=== PATIENT | male | born 1960 | race Caucasian/White ===

== ENCOUNTER 2020-12-17 12:18 | Inpatient (IN) ==
[2020-12-17] MEDS ORDERED: dilTIAZem HCl 5 MG/ML 5 ML VIAL IV STA ×2 (13:06→14:21)
--- NOTE | 2020-12-17 13:09 | Emergency Department Note ---
History of Present Illness General Chief complaint: Chest Pain Stated complaint: SOB, CHEST PAIN Time Seen by Provider: 12/17/20 12:59 Source: patient History of Present Illness Provider complaint: Chest pain Onset (ago): week(s) Location: chest Radiation: non-radiation Severity: moderate Pain Consistency: + intermittent and + now resolved Maximum Pain Intensity: 7 Quality: + other (Something sitting on his chest) Relieved By: + none Exacerbated By: + other (Exertion) Associated symptoms: + other (Bilateral foot swelling for 2 days); no cough, no fever/chills, no headaches, no nausea/vomiting or no shortness of breath This is a 60-year-old male who presents with intermittent chest pain for the past week. He states that it feels like something is sitting in the middle of his chest. There is no radiation of pain. It is associated with shortness of breath and he gets especially short of breath with exertion. His chest pain gets worse with exertion as well. He states it is currently gone and he last had at this morning. He does have a history of Covid 5 months ago and then subsequently received the vaccination series. He denies any recent immobilization but has noticed that his feet are swollen. He denies any leg pain or history of PE or DVT. He has never had a dysrhythmia in the past. He denies any cardiac history. He states he has a history of hypertension but is not on medications for it. He denies any recent alcohol use. He has had no fever, cough or cold symptoms, vomiting, diarrhea or urinary symptoms. He does state that he has had some cramping epigastric pain on occasion. Past Med/Surg History Medical History (Updated 12/17/20 @ 14:26 by Johnson Rizvi MD) Hypertension Social History Smoking Status: Never smoker Preferred Language: Romansh Feels Safe at Home: Yes Review of Systems See HPI for pertinent positives & negatives. and A total of 10 systems reviewed and were otherwise negative Physical Exam Vital Signs Vital Signs - 24 hr 12/17/20 12:19 12/17/20 13:14 Temperature 36.7 C Temperature Source Temporal Artery Scan Pulse Rate 118 H Pulse Rate [Right Finger] 128 H Pulse Rhythm Irregular Pulse Rhythm [Right Finger] Irregular Pulse Strength Normal Pulse Strength [Right Finger] Normal Respiratory Rate 20 Respiratory Effort / Characteristics Non-Labored Respiratory Depth Normal Respiratory Pattern Regular Blood Pressure 196/129 H Blood Pressure [Right Arm] 196/129 H Blood Pressure Mean 151 Blood Pressure Mean [Right Arm] 151 Blood Pressure Position Sitting Blood Pressure Position [Right Arm] Sitting Pulse Oximetry 95 93 Oxygen Delivery Method Room Air Room Air Sepsis Recent Fever Within 48 Hours No Sepsis New/Unexplained Change in Mental Status N/A Sepsis Action Taken by Nursing No Action Required Constitutional: Vital signs reviewed. Eyes: Pupils are equal round reactive to light. Conjunctiva are noninjected. ENT: Pharynx is clear without erythema or exudate. Mucous membranes are moist. Neck supple without meningeal signs. Respiratory: Clear to auscultation bilaterally. Breath sounds are equal bilaterally. Cardiovascular: Irregularly irregular rhythm. Tachycardic heart rate 130. GI: Soft, nondistended and nontender. Bowel sounds are present. Musculoskeletal: No peripheral edema. No lower extremity tenderness. Integumentary: No cyanosis. or jaundice. Neurological: The patient is awake and alert. No focal deficits. Psychiatric: Normal affect. Not anxious appearing. Course Administered Medications Discontinued Medications Diltiazem HCl (Diltiazem Hcl 5 Mg/Ml 5 Ml Vial) 10 mg IV NOW STA Stop: 12/17/20 13:07 Last Admin: 12/17/20 13:23 Dose: 10 mg Documented by: [id number] Cosigned by: [id number] Ioversol (Optiray 320 125ml) 119 ml IV ONCE ONE Stop: 12/17/20 13:41 Last Admin: 12/17/20 13:41 Dose: 119 ml Documented by: [id number] Critical Care Time Critical Care Time: Yes Total Critical Care Time: 35 I have personally spent approximately 35 minutes of critical care time in the direct management of this patient. This includes bedside care, interpretation of diagnostic studies, and testing, discussion with consultants, patient, and family members, and other required patient management activities. These minutes are in excess of all separately billable procedures. Medical Decision Making Differential Diagnosis Pulmonary embolism, unstable angina, SC, A. fib with RVR, electrolyte abnormality Medical Records Attestation: I reviewed the patient's medical records. I did perform a limited focused review of portions of the patient's old chart on the electronic medical record. The patient has had no prior visits to this hospital. Home Medications Current Medication List: was personally reviewed by me Laboratory Data Attestation: I reviewed the patient's lab results. Result diagrams: 12/17/20 12:59 12/17/20 12:59 Lab Results 12/17/20 12/17/20 12/17/20 Range/Units 12:59 12:59 12:59 WBC 8.76 (4.8-10.8) K/uL RBC 5.00 (4.7-6.1) M/uL Hgb 14.6 (14.0-18.0) g/dL POC Hgb (14.0-18.0) g/dl Hct 42.9 (42-52) % POC Hct (42-52) % MCV 85.8 (80-100) fL MCH 29.2 (25-34) pg MCHC 34.0 (32-36) g/dL RDW Std Deviation 42.3 (36.4-46.3) fL RDW Coeff of Bo 13.7 (11.5-14.5) % Plt Count 193 (130-400) K/uL MPV 10.0 (7.4-10.4) fL Immature Gran % (Auto) 0.2 % Neut % (Auto) 68.5 % Lymph % (Auto) 24.1 % [place]ipley % (Auto) 5.5 % Eos % (Auto) 1.4 % Baso % (Auto) 0.3 % Neut # (Auto) 6.00 (1.4-6.5) K/uL Lymph # (Auto) 2.11 (1.2-3.4) K/uL [place]y # (Auto) 0.48 (0.11-0.59) K/uL Eos # (Auto) 0.12 (0-0.5) K/uL Baso # (Auto) 0.03 (0-0.2) K/uL Immature Gran # (Auto) 0.02 (0.00-0.02) K/uL APTT 25.3 (21.0-31.0) Seconds PTT Ratio 1.0 POC Sodium (135-144) mmol/L Sodium (136-145) mmol/L POC Potassium (3.3-5.0) mmol/L Potassium (3.5-5.1) mmol/L POC Chloride (101-112) mmol/L Chloride (98-107) mmol/L Carbon Dioxide (21-32) mmol/L POC Total CO2 (24-31) mmol/L Anion Gap (3-11) POC Anion Gap (16-25) mmol/L POC BUN (7-18) mg/dl BUN (7-18) mg/dl Creatinine (0.6-1.4) mg/dl POC Creatinine (0.6-1.3) mg/dl Est Cr Clr Drug Dosing ml/min Est GFR ( Amer) ml/min Est GFR (Non-Af Amer) ml/min BUN/Creatinine Ratio (10-20) Glucose (70-99) mg/dl POC Glucose (other) (70-99) mg/dl Calcium (8.5-10.1) mg/dl POC Ioniz Calcium Shira (1.12-1.32) mmol/l Magnesium (1.8-2.4) mg/dl Total Bilirubin (0.2-1) mg/dl AST (15-37) U/L ALT (12-78) U/L Alkaline Phosphatase (45-117) U/L Troponin I Cancelled Total Protein (6.4-8.2) gm/dl Albumin (3.4-5.0) gm/dl Globulin (2.5-4.0) gm/dl Albumin/Globulin Ratio (0.9-2) Lipase (73-393) U/L COVID-19 Eval Order 12/17/20 12/17/20 12/17/20 Range/Units 12:59 13:11 14:45 WBC (4.8-10.8) K/uL RBC (4.7-6.1) M/uL Hgb (14.0-18.0) g/dL POC Hgb 13.9 L (14.0-18.0) g/dl Hct (42-52) % POC Hct 41 L (42-52) % MCV (80-100) fL MCH (25-34) pg MCHC (32-36) g/dL RDW Std Deviation (36.4-46.3) fL RDW Coeff of Bo (11.5-14.5) % Plt Count (130-400) K/uL MPV (7.4-10.4) fL Immature Gran % (Auto) % Neut % (Auto) % Lymph % (Auto) % Ripley % (Auto) % Eos % (Auto) % Baso % (Auto) % Neut # (Auto) (1.4-6.5) K/uL Lymph # (Auto) (1.2-3.4) K/uL [place]y # (Auto) (0.11-0.59) K/uL Eos # (Auto) (0-0.5) K/uL Baso # (Auto) (0-0.2) K/uL Immature Gran # (Auto) (0.00-0.02) K/uL APTT (21.0-31.0) Seconds PTT Ratio POC Sodium 143 (135-144) mmol/L Sodium 141 (136-145) mmol/L POC Potassium 3.9 (3.3-5.0) mmol/L Potassium 4.3 (3.5-5.1) mmol/L POC Chloride 103 (101-112) mmol/L Chloride 109 H (98-107) mmol/L Carbon Dioxide 27 (21-32) mmol/L POC Total CO2 24 (24-31) mmol/L Anion Gap 5.0 (3-11) POC Anion Gap 20.0 (16-25) mmol/L POC BUN 18 (7-18) mg/dl BUN 17 (7-18) mg/dl Creatinine 0.90 (0.6-1.4) mg/dl POC Creatinine 0.9 (0.6-1.3) mg/dl Est Cr Clr Drug Dosing 119.9 ml/min Est GFR ( Amer) 105.7 ml/min Est GFR (Non-Af Amer) 91.2 ml/min BUN/Creatinine Ratio 19.3 (10-20) Glucose 153 H (70-99) mg/dl POC Glucose (other) 152 H (70-99) mg/dl Calcium 9.1 (8.5-10.1) mg/dl POC Ioniz Calcium Shira 1.17 (1.12-1.32) mmol/l Magnesium 2.3 (1.8-2.4) mg/dl Total Bilirubin 1.1 H (0.2-1) mg/dl AST 22 (15-37) U/L ALT 52 (12-78) U/L Alkaline Phosphatase 80 (45-117) U/L Troponin I 0.024 Total Protein 7.5 (6.4-8.2) gm/dl Albumin 3.6 (3.4-5.0) gm/dl Globulin 3.9 (2.5-4.0) gm/dl Albumin/Globulin Ratio 0.9 (0.9-2) Lipase 75 (73-393) U/L COVID-19 Eval Order Covid19 at [facility] Imaging Data Radiologist's Impression: Chest CTA 12/17/20 13:07 CT angio chest PE protocol CT DOSE: 1177.70 mGy.cm HISTORY: 60 years-old Male with Chest Pain, eval for PE. Acute chest pain with shortness of breath TECHNIQUE: Multiple CTA images of the chest were obtained after the intravenous administration of 119 ml Optiray. Coronal and sagittal MIPS were obtained from the axial data set and were submitted for review. All measurements were obtained according to NASCET criteria. A dose lowering technique was utilized adhering to the principles of ALARA. COMPARISON: None. FINDINGS: CTA: The heart is mildly enlarged. No pericardial effusion. The left heart structures are not well opacified, therefore the thoracic aorta is not well evaluated. No thoracic aortic aneurysm. The subsegmental arterial branches are suboptimally opacified. Respiratory motion artifact also limits the study. No pulmonary emboli identified. CT CHEST: Unremarkable thyroid. There are a few scattered mediastinal and hilar lymph nodes measure up to 9 mm, likely reactive. Small left and moderate right pleural effusions. Intralobular septal thickening with bronchial wall thickening. Right greater left dependent bibasilar consolidation. 4 mm calcified granuloma of the right upper lobe. The central airways are patent. No pneumoperitoneum. Hepatic steatosis. Unremarkable soft tissues. Sigmoidal thoracolumbar scoliosis with multilevel degenerative changes. Mild superior endplate compression deformities are noted involving the T5, T7, T8 and T9 vertebral bodies. No retropulsion or definite acute fracture line. No paravert ebral edema identified. IMPRESSION: 1. Cardiomegaly with pulmonary edema, small left and moderate right pleural effusions. 2. Dependent right greater than left bibasilar opacities are suggestive of atelectasis. 3. No pulmonary emboli. 4. Hepatic steatosis. 5. Numerous midthoracic compression deformities are technically age- indeterminate however are favored to be chronic. ACT 112: Negative or not required by law. The above report was generated using voice recognition software. It may contain grammatical, syntax or spelling errors. Electronically signed by: Tony Khan M.D. 12/17/2020 2:10 PM ECG Data Attestation: I personally reviewed and interpreted this ECG as follows: Indication: + chest pain and + tachycardia Rate (beats per minute): 117 Rhythm: + atrial fibrillation ECG [place]: + Normal ECG Findings: + Q waves and + PVCs Comparison ECG Date: no prior available MDM Narrative I did evaluate the patient as noted above. He is presenting with exertional chest pain and dyspnea. He is also tachycardic. IV access was established. I did place an order for continuous cardiac monitoring. The monitor showed atrial fibrillation with RVR. Heart rate is 128. I did order and personally review the patient's 12-lead EKG as described above. He has atrial fibrillation with RVR. His has a PVC as well. Possible fusion beat. He has never had atrial fibrillation in the past. I did order and review the patient's blood work as noted in the electronic medical record. CBC is unremarkable without leukocytosis or anemia. Electrolytes are unremarkable other than chloride of 10 9. Troponin is negative. LFTs and lipase are unremarkable. I did order a CT angiogram of the chest. I did review the images myself as well as the radiology report as described above. There is no evidence of pulmonary embolism. He has bilateral pleural effusions with cardiomegaly and pulmonary edema. I did treat the patient with Cardizem 10 mg IV. His heart rate and blood pressure came down but he was still tachycardic and significantly hypertensive. He was given another 10 mg of Cardizem IV. I did discuss the test results with the patient as well as his niece over the telephone who is a doctor. His Martín vasc2 score is 2 and his chest pain is concerning for coronary artery disease. I did discuss case with the hospitalist and case work aide. I did start the patient on IV heparin with a bolus. Impression & Plan Atrial fibrillation with rapid ventricular response, Atrial fibrillation, new onset, Pleural effusion, bilateral, Chest pain on exertion Discharge Plan Visit Data Chief Complaint: Chest Pain Stated Complaint: SOB, CHEST PAIN ED Provider: Johnson Rizvi Discharge Problem: Atrial fibrillation with rapid ventricular response, Atrial fibrillation, new onset, Pleural effusion, bilateral, Chest pain on exertion Patient Disposition: Being Evaluated by Hospitalist Forms Stand Alone Forms: My [facility] Referrals Referrals: PCP,NO [Primary Care Provider] -
[2020-12-17 13:24] LABS: Basophils # (auto) 0.03 K/uL (0-0.2); Basophils % (auto) 0.3 %; Eosinophils # (auto) 0.12 K/uL (0-0.5); Eosinophils % (auto) 1.4 %; Hematocrit (blood only) 42.9 % (42-52); Hemoglobin 14.6 g/dL (14.0-18.0); Immature Granulocytes # (auto) 0.02 K/uL (0.00-0.02); Immature Granulocytes % (auto) 0.2 %; Lymphocytes # (auto) 2.11 K/uL (1.2-3.4); Lymphocytes % (auto) 24.1 %; Mean Corpuscular Hemoglobin 29.2 pg (25-34); Mean Corpuscular Volume 85.8 fL (80-100); Monocytes # (auto) 0.48 K/uL (0.11-0.59); Monocytes % (auto) 5.5 %; Neutrophils % (auto) 68.5 %; Platelet Count 193 K/uL (130-400); RDW Coefficient of Variation 13.7 % (11.5-14.5); RDW Standard Deviation 42.3 fL (36.4-46.3); White Blood Count 8.76 K/uL (4.8-10.8)
[2020-12-17 13:24] LABS: iSTAT Creatinine 0.9 mg/dl (0.6-1.3); iSTAT Hemoglobin 13.9 g/dl (14.0-18.0); iSTAT Ionized Calcium 1.17 mmol/l (1.12-1.32); iSTAT Potassium 3.9 mmol/L (3.3-5.0)
[2020-12-17 13:36] LABS: Albumin Level 3.6 gm/dl (3.4-5.0); BUN Creatinine Ratio 19.3 (10-20); Calcium 9.1 mg/dl (8.5-10.1); Creatinine Clr Calc Pharmacy 119.9 ml/min; Est GFR (African American) 105.7 ml/min; Est GFR (Non-African American) 91.2 ml/min; Magnesium 2.3 mg/dl (1.8-2.4); Potassium 4.3 mmol/L (3.5-5.1)
[2020-12-17 13:37] LABS: Partial Thromboplastin Time 25.3 Seconds (21.0-31.0)
[2020-12-17 13:40] LABS: Albumin Globulin Ratio 0.9 (0.9-2); Bilirubin,Total 1.1 mg/dl (0.2-1); Globulin 3.9 gm/dl (2.5-4.0); Total Protein 7.5 gm/dl (6.4-8.2); Troponin I 0.024 ng/ml (0-0.045)
[2020-12-17] MEDS ORDERED: OPTIRAY 320 125ml IV ONE (13:40)
--- NOTE | 2020-12-17 14:12 | CT Scan Report ---
CT angio chest PE protocol CT DOSE: 1177.70 mGy.cm HISTORY: 60 years-old Male with Chest Pain, eval for PE. Acute chest pain with shortness of breath TECHNIQUE: Multiple CTA images of the chest were obtained after the intravenous administration of 119 ml Optiray. Coronal and sagittal MIPS were obtained from the axial data set and were submitted for review. All measurements were obtained according to NASCET criteria. A dose lowering technique was u tilized adhering to the principles of ALARA. COMPARISON: None. FINDINGS: CTA: The heart is mildly enlarged. No pericardial effusion. The left heart structures are not well opacifi ed, therefore the thoracic aorta is not well evaluated. No thoracic aortic aneurysm. The subsegmental arterial branches are suboptimally opacified. Respiratory motion artifact also limits the study. No pulmonary emboli identified. CT CHEST: Unremarkable thyroid. There are a few scattered mediastinal and hilar lymph nodes measure up to 9 mm, likely reactive. Small left and moderate right pleural effusions. Intralobular septal thickening wit h bronchial wall thickening. Right greater left dependent bibasilar consolidation. 4 mm calcified gra nuloma of the right upper lobe. The central airways are patent. No pneumoperitoneum. Hepatic steatosis. Unremarkable soft tissues. Sigmoidal thoracolumbar scoliosis with multilevel degenerative changes. Mild superior endplate compression deformities are noted involv ing the T5, T7, T8 and T9 vertebral bodies. No retropulsion or definite acute fracture line. No parav ertebral edema identified. IMPRESSION: 1. Cardiomegaly with pulmonary edema, small left and moderate right pleural effusions. 2. Dependent right greater than left bibasilar opacities are suggestive of atelectasis. 3. No pulmonary emboli. 4. Hepatic steatosis. 5. Numerous midthoracic compression deformities are technically age-indeterminate however are favored to be chronic. ACT 112: Negative or not required by law. The above report was generated using voice recognition software. It may contain grammatical, syntax o r spelling errors. Electronically signed by: Tony Khan M.D. 12/17/2020 2:10 PM
[2020-12-17] MEDS ORDERED: Heparin IV Adult Wt-Based Low-Dose WITH Bolus Protocol STA (14:34)
[2020-12-17] MEDS ORDERED: HEPARIN SOD (PORCINE) 1000 UNIT/ML IV ONE ×2 (14:51→22:45)
[2020-12-17] MEDS ORDERED: FUROSEMIDE 40 MG/4 ML VIAL IV STA (14:57)
[2020-12-17] MEDS ORDERED: METOPROLOL TARTRATE 1 MG/ML VIAL IV STA (14:57)
[2020-12-17] MEDS ORDERED: ALBUTEROL 0.5% NEB SOLN 2.5 MG/0.5 ML VIAL NEB STA (14:59)
[2020-12-17] MEDS ORDERED: POTASSIUM CHLORIDE CRTAB 20 MEQ TABCR PO STA (15:11)
[2020-12-17] MEDS: HEPARIN SODIUM/DEXTROSE 25,000 UNITS/500 ML BAG IV SCH (15:22)
[2020-12-17] MEDS ORDERED: METOPROLOL TARTRATE 25 MG TAB PO STA (15:24)
[2020-12-17] MEDS ORDERED: PATIENT'S ALLERGY INFO NEEDS ENTERED STA (15:25)
[2020-12-17 15:46] LABS: Thyroid Stimulating Hormone 1.4 uIu/ml (0.300-4.500)
--- NOTE | 2020-12-17 15:58 | History & Physical Report ---
Date of Service December 17, 2020 Assessment & Plan (1) Atrial fibrillation with rapid ventricular response: Plan: New onset of Afib unknown time of onset- rate control strategy at this time - CHADS VASC- 2, HASBLED- 1 - Patient has never smoked and he does not use ETOH (last drink over a year ago) - BNP 2514 - ECHO - Started on Heparin drip in the EMD, will continue. His weight will likely preclude him from NOACs - Rate control- Metoprolol 25 mg PO q6 hours, Metoprolol 5mg IV PRN HR >120 - TSH 1.4 - ? undiagnosed obesity hypoventilation syndrome- HCO3 27 (2) Pleural effusion, bilateral: Plan: Likely related to afib, and evidence of heart failure on exam - ECHO as above - Diurese- 40 mg IV x1 now, and then 20 mg IV q6 hours - Moderate in size no acute need for thoracentesis (3) Dyspnea: Plan: Multifactorial to include obesity, ? new onset heart failure, afib, previous COVID - Diurese as above - Albuterol neb now and then schedule q6 hours - CPAP/BiPAP for tachypnea/hypoxia if needed during acute diursing (4) Edema: Plan: As above- evaluate heart function, diurese no murmurs on exam (5) Hypertension: Plan: Metoprlol as above, diurese - defer other agents to rounding team pending more information (6) Obesity: Plan: As above - Multiple risk factors for morbidity - HGA1C in morning with lipid profile - random cortisol - fat pad on back of neck History of Present Illness Primary Care Provider: NO PCP 60 YOM that is not from the area. He is normally a resident of [place] and is up here visiting his brother. The patient does not take any medications at home, and does not carry any other diagnosis except Hypertension and obesity per the patient. Patient had COVID 19 around 4-5 months ago, he reports that since then he has remained short of breath but over the past 2-3 weeks this has gotten significantly worse. He is only able to walk <0.25 miles before having to stop and catch his breath, he can go up 15 steps and has to stop. He has developed orthopnea over the past week to where he can't lie flat, this has also been associated with increase in lower extremity swelling that has gone up to his knees. He also complains of swelling in his abdomen feeling bloated, with decrease in appetite and early satiety, but denies his pants feeling tighter. In the EMD, it was noted that the patient was in atrial fibrillation with RVR with HR 120-130s, again he has no knowledge of ever being in this rhythm before and has not noted any palpitations or racing heart rate. He was rate controlled with Diltiazem 10mg bolus x2. He had a CTA of the chest performed which did reveal NO pulmonary embolisms but a right sided pleural effusion and hypersteatosis. Patient is short of breath with lying flat and with conversation, but he is not hypoxic. I will transition the patient to ne toprolol IV x1 and PRN for HR >110 and start him on Metoprolol tartrate 25 mg PO q6 hours, 40 mg IV Lasix now and then 20mg IV Lasix q6 hours, telemetry monitoring and ECHO. Patient will be admitted to PCU. Patient will be visiting in the area for a month's time. Patient has not been vaccinated for COVID 19 but had the virus. COVID on admission is NEGATIVE Allergies Allergy/AdvReac Type Severity Reaction Status Date / Time No Known Allergies Allergy Unverified 12/17/20 15:25 Home Medications Medication Instructions Recorded Confirmed Type aspirin 81 mg tablet,delayed 81 mg PO DAILY 12/17/20 12/17/20 History release Past Med/Surg History Medical History Hypertension Family History (Updated 12/17/20 @ 15:35 by CORINA Saavedra) Father Stroke Hypertension Diabetes Mother Stroke Hypertension Diabetes Brother Cancer Pancreatic cancer Social History Smoking Status: Never smoker Preferred Language: Grenadian Feels Safe at Home: Yes Review of Systems Review of Systems: REVIEW OF SYSTEMS: Constitutional: (+) easily fatigued, and daytime sleppiness, No fever, sweats or chills Eyes: No diplopia, no worsening or blurred vision ENT: normal hearing, no trouble swallowing Respiratory: (+) cough, thin white sputum, dyspnea at rest or on exertion Cardiovascular: (+) bilateral leg swelling, No chest pain, tightness or palpitations Abdomen: (+) nausea and early satiety, No pain, vomiting, diarrhea or constipation Musculoskeletal: No joint pain, calf pain, swelling Neurologic: No weakness, numbness/tingling, or balance problems Psychiatric: No anxiety or depression Skin: No rash or itch Physical Exam Physical Exam: PHYSICAL EXAM: General: awake, alert, dyspneic Head: Normocephalic, atraumatic ENT: PERRL, EOMI, no pharyngeal exudate, mucous membranes moist Neuro: AAO x 3, speech clear and appropriate, strength intact bilaterally 5/5, sensation intact and equal all extremities and dermatomes, no pronator drift Chest: equal rise and fall of the chest, tachypneic, scattered crackles with inspiratory and expiratory wheeze, on Room air Cardiac: irregular rate and rhythm, telemetry reviewed- afib with occasional PVC, skin warm dry, cap refill <3 seconds, peripheral pulses +2 no JVD, no murmur, Pitting edema bilaterally to upper calf, pulses strong GI: NABS x 4 quadrants, softly obese, nontender to palpation, no rebound, guarding or tenderness : Spontaneously voiding, no pain, no CVA tenderness, Extremities: Normal inspection, no peripheral edema or erythema, calfs nontender to palpation Psych: Normal mood and affect Skin: no rash or erythema Results & Data Results & Data ([facility]) Vital Signs (Past 12 Hours) Vital Signs Temp Pulse Pulse Resp BP BP Pulse Ox 12/17/20 15:18 111 H 20 92 12/17/20 15:05 118 H 23 170/133 H 94 12/17/20 13:14 93 12/17/20 12:19 36.7 C 118 H 128 H 20 196/129 H 196/129 H 95 Laboratory Results Abnormal lab results 12/17/20 12/17/20 Range/Units 12:59 13:11 POC Hgb 13.9 L (14.0-18.0) g/dl POC Hct 41 L (42-52) % Chloride 109 H (98-107) mmol/L Glucose 153 H (70-99) mg/dl POC Glucose (other) 152 H (70-99) mg/dl Total Bilirubin 1.1 H (0.2-1) mg/dl Diagnostic Findings Chest CTA 12/17/20 13:07 CT angio chest PE protocol CT DOSE: 1177.70 mGy.cm HISTORY: 60 years-old Male with Chest Pain, eval for PE. Acute chest pain with shortness of breath TECHNIQUE: Multiple CTA images of the chest were obtained after the intravenous administration of 119 ml Optiray. Coronal and sagittal MIPS were obtained from the axial data set and were submitted for review. All measurements were obtained according to NASCET criteria. A dose lowering technique was utilized adhering to the principles of ALARA. COMPARISON: None. FINDINGS: CTA: The heart is mildly enlarged. No pericardial effusion. The left heart structures are not well opacified, therefore the thoracic aorta is not well evaluated. No thoracic aortic aneurysm. The subsegmental arterial branches are suboptimally opacified. Respiratory motion artifact also limits the study. No pulmonary emboli identified. CT CHEST: Unremarkable thyroid. There are a few scattered mediastinal and hilar lymph nodes measure up to 9 mm, likely reactive. Small left and moderate right pleural effusions. Intralobular septal thickening with bronchial wall thickening. Right greater left dependent bibasilar consolidation. 4 mm calcified granuloma of the right upper lobe. The central airways are patent. No pneumoperitoneum. Hepatic steatosis. Unremarkable soft tissues. Sigmoidal thoracolumbar scoliosis with multilevel degenerative changes. Mild superior endplate compression deformities are noted involving the T5, T7, T8 and T9 vertebral bodies. No retropulsion or definite acute fracture line. No paravertebral edema identified. IMPRESSION: 1. Cardiomegaly with pulmonary edema, small left and moderate right pleural effusions. 2. Dependent right greater than left bibasilar opacities are suggestive of atelectasis. 3. No pulmonary emboli. 4. Hepatic steatosis. 5. Numerous midthoracic compression deformities are technically age- indeterminate however are favored to be chronic. ACT 112: Negative or not required by law. The above report was generated using voice recognition software. It may contain grammatical, syntax or spelling errors. Electronically signed by: Tony Khan M.D. 12/17/2020 2:10 PM Medications Administered Heparin Sodium/Dextrose (Heparin Sodium/Dextrose) 25,000 units in 500 mls @ 20 mls/hr IV .Q24H [facility]; Protocol Stop: 01/16/21 14:59 Last Admin: 12/17/20 15:22 Dose: 1,000 units/hr, 20 mls/hr Documented by: [id number] Cosigned by: [id number] Discontinued Medications Albuterol (Albuterol 0.5% Neb Soln 2.5 Mg/0.5 Ml Vial) 2.5 mg NEB NOW STA Stop: 12/17/20 15:00 Last Admin: 12/17/20 15:17 Dose: 2.5 mg Documented by: [id number] Diltiazem HCl (Diltiazem Hcl 5 Mg/Ml 5 Ml Vial) 10 mg IV NOW STA Stop: 12/17/20 13:07 Last Admin: 12/17/20 13:23 Dose: 10 mg Documented by: [id number] Cosigned by: [id number] Diltiazem HCl (Diltiazem Hcl 5 Mg/Ml 5 Ml Vial) 10 mg IV NOW STA Stop: 12/17/20 14:22 Last Admin: 12/17/20 14:57 Dose: Not Given Documented by: [id number] Furosemide (Furosemide 40 Mg/4 Ml Vial) 40 mg IV NOW STA Stop: 12/17/20 14:58 Last Admin: 12/17/20 15:24 Dose: 40 mg Documented by: [id number] Heparin Sodium (Porcine) (Heparin Sod (Porcine) 1000 Unit/Ml) 1 units IV NOW ONE Stop: 12/17/20 14:52 Last Admin: 12/17/20 15:24 Dose: 4,000 units Documented by: [id number] Cosigned by: [id number] Heparin Sodium/Dextrose (Heparin Iv Adult Wt-Based Low-Dose With Bolus Protocol) 1 ea N/A NOW STA; Protocol Stop: 12/17/20 14:35 Last Admin: 12/17/20 15:30 Dose: 1 ea Documented by: [id number] Ioversol (Optiray 320 125ml) 119 ml IV ONCE ONE Stop: 12/17/20 13:41 Last Admin: 12/17/20 13:41 Dose: 119 ml Documented by: [id number] Metoprolol Tartrate (Metoprolol Tartrate 1 Mg/Ml Vial) 5 mg IV NOW STA Stop: 12/17/20 14:58 Last Admin: 12/17/20 15:22 Dose: 5 mg Documented by: [id number] Miscellaneous Information (Patient's Allergy Info Needs Entered) 1 ea N/A ONE STA Stop: 12/17/20 15:26 Last Admin: 12/17/20 15:30 Dose: 1 ea Documented by: [id number] Potassium Chloride (Potassium Chloride Crtab 20 Meq Tabcr) 20 meq PO NOW STA Stop: 12/17/20 15:12 Last Admin: 12/17/20 15:24 Dose: 20 meq Documented by: [id number] Home Medications aspirin 81 mg tablet,delayed release 81 mg PO DAILY 12/17/20 [History Confirmed 12/17/20] Active Medications Furosemide (Furosemide 40 Mg/4 Ml Vial) 20 mg IV Q6 [facility] Stop: 01/16/21 17:59 Heparin Sodium/Dextrose (Heparin Sodium/Dextrose) 25,000 units in 500 mls @ 20 mls/hr IV .Q24H [facility]; Protocol Stop: 01/16/21 14:59 Last Admin: 12/17/20 15:22 Dose: 1,000 units/hr, 20 mls/hr Documented by: ECG Additional Comments: Atrial flutter with variable A-V block with premature ventricular or aberrantly conducted complexes Anterior infarct , age undetermined Abnormal ECG No previous ECGs available Code Status & VTE Plan Code Status CODE: FULL VTE: SCD's, Heparin drip VTE Prophylaxis Plan VTE Prophylaxis will be ordered: Yes PG Care Time/CCT Total # of Minutes Spent Total Time Spent with Patient: Total time spent is greater than 50% in coordination of care (as documented) at patient's floor/unit and/or counseling patient: Coding Level of Care Code 60727 Initial Inpt Care Lvl 3 Diagnoses Atrial fibrillation with rapid ventricular response I48.91 Pleural effusion, bilateral J90 Dyspnea R06.00 Hypertension I10 Obesity E66.9 Edema R60.9
--- NOTE | 2020-12-17 17:46 | Electrocardiogram Report ---
Test Reason : Blood Pressure : / mmHG Vent. Rate : 117 BPM Atrial Rate : 277 BPM P-R Int : 000 ms QRS Dur : 072 ms QT Int : 316 ms P-R-T Axes : 000 -01 072 degrees QTc Int : 440 ms Atrial flutter with variable A-V block with premature ventricular or aberrantly conducted complexes Abnormal ECG No previous ECGs available Confirmed by Tomy Russell ([id number]) on 12/17/2020 5:45:37 PM Referred By: REFERRED SELF Confirmed By:Alexi Russell
[2020-12-17] MEDS ORDERED: FUROSEMIDE 40 MG/4 ML VIAL IV SCH (18:00)
[2020-12-17] MEDS ORDERED: ACETAMINOPHEN 325 MG TAB PO PRN (19:18)
[2020-12-17] MEDS ORDERED: METOPROLOL TARTRATE 1 MG/ML VIAL IV PRN (19:18)
[2020-12-17] MEDS ORDERED: ONDANSETRON INJ 2 MG/ML 2 ML VIAL IV PRN (19:18)
[2020-12-17] MEDS: ALBUTEROL 0.5% NEB SOLN 2.5 MG/0.5 ML VIAL NEB SCH (19:34)
[2020-12-17] MEDS: FUROSEMIDE 40 MG in SYRINGE 0 ML IV SCH (20:11)
[2020-12-17] MEDS: POTASSIUM CHLORIDE CRTAB 20 MEQ TABCR PO SCH (20:12)
[2020-12-17] MEDS: METOPROLOL TARTRATE 25 MG TAB PO SCH (20:12)
[2020-12-17 21:36] LABS: Partial Thromboplastin Time 26.7 Seconds (21.0-31.0)
[2020-12-18] MEDS: METOPROLOL TARTRATE 25 MG TAB PO SCH ×2 (02:46→09:15)
[2020-12-18] MEDS: FUROSEMIDE 40 MG in SYRINGE 0 ML IV SCH ×3 (02:46→20:09)
[2020-12-18] MEDS: ALBUTEROL 0.5% NEB SOLN 2.5 MG/0.5 ML VIAL NEB SCH ×4 (04:40→19:50)
[2020-12-18 05:13] LABS: Basophils # (auto) 0.03 K/uL (0-0.2); Basophils % (auto) 0.3 %; Eosinophils # (auto) 0.13 K/uL (0-0.5); Eosinophils % (auto) 1.4 %; Hematocrit (blood only) 42.9 % (42-52); Hemoglobin 14.7 g/dL (14.0-18.0); Immature Granulocytes # (auto) 0.02 K/uL (0.00-0.02); Immature Granulocytes % (auto) 0.2 %; Lymphocytes # (auto) 2.49 K/uL (1.2-3.4); Lymphocytes % (auto) 26.6 %; Mean Corpuscular Hemoglobin 29.4 pg (25-34); Mean Corpuscular Hgb Conc 34.3 g/dL (32-36); Mean Corpuscular Volume 85.8 fL (80-100); Mean Platelet Volume 10.1 fL (7.4-10.4); Monocytes % (auto) 7.5 %; Neutrophils # (auto) 5.98 K/uL (1.4-6.5); Platelet Count 201 K/uL (130-400); RDW Coefficient of Variation 13.7 % (11.5-14.5); RDW Standard Deviation 42.7 fL (36.4-46.3); White Blood Count 9.35 K/uL (4.8-10.8)
[2020-12-18 05:25] LABS: Partial Thromboplastin Ratio 1.2; Partial Thromboplastin Time 32.5 Seconds (21.0-31.0)
[2020-12-18 05:39] LABS: BUN Creatinine Ratio 15.2 (10-20); Calcium 8.9 mg/dl (8.5-10.1); Creatinine Clr Calc Pharmacy 94.7 ml/min; Est GFR (African American) 79.4 ml/min; Est GFR (Non-African American) 68.5 ml/min; Potassium 3.7 mmol/L (3.5-5.1)
[2020-12-18 05:43] LABS: Troponin I 0.029 ng/ml (0-0.045)
[2020-12-18] MEDS ORDERED: HEPARIN SOD (PORCINE) 1000 UNIT/ML IV ONE (06:21)
[2020-12-18 07:03] LABS: Estimated Average Glucose 166 mg/dl; Hemoglobin A1C 7.4 % (4.5-5.6)
--- NOTE | 2020-12-18 08:59 | Hospitalist Progress Note ---
Date of Service December 18, 2020 Assessment & Plan (1) Atrial fibrillation with rapid ventricular response: Plan: New onset of Afib unknown time of onset- rate control strategy at this time, now aflutter - CHADS VASC- 2, HASBLED- 1 - Patient has never smoked and he does not use ETOH (last drink over a year ago) - BNP 2514 - ECHO shows EF 40% mild global hypokinesis of LV metoprolol tartrate 50 mg bid, starting lisinopril, can push b kym as bp has room - Started on Heparin drip in the EMD, will transition to Eliquis po - Metoprolol 5mg IV PRN HR >120 - TSH 1.4 - ? undiagnosed obesity hypoventilation syndrome- HCO3 27 (2) Pleural effusion, bilateral: Plan: Likely related to afib, and evidence of heart failure on exam - ECHO - Diurese- 40 mg IV x1 now, the scheduled lasix - Ct 12/17/20 IMPRESSION: 1. Cardiomegaly with pulmonary edema, small left and moderate right pleural effusions. 2. Dependent right greater than left bibasilar opacities are suggestive of atelectasis. 3. No pulmonary emboli. 4. Hepatic steatosis. 5. Numerous midthoracic compression deformities are technically age- indeterminate however are favored to be chronic. (3) Dyspnea: Plan: Multifactorial to include obesity, ? new onset heart failure, afib, previous COVID -improved after initial diuresis, renal function is stable - Albuterol neb now and then schedule q6 hours - CPAP/BiPAP for tachypnea/hypoxia if needed during acute diursing (4) Edema: Plan: As above- evaluate heart function, diurese no murmurs on exam likely secondary to acute on chronic systolic heart failure (5) Hypertension: Plan: Metoprlol as above, diurese - starting rogerio i on pm of 12/18 (6) Obesity: Plan: As above - Multiple risk factors for morbidity - HGA1C in morning with lipid profile - random cortisol - fat pad on back of neck (7) Thoracic compression fracture: Plan: discussed to be chronic on imaging Admission and Anticipated Discharge Date Admission Date: December 17, 2020 Subjective Patient states his recumbency is improved he is less orthopnea. He does not notice his tachycardia. Many questions were answered to both he and his [id number]. We did talk also frankly about likely sleep apnea which is going to have a work-up once he returns to [place] Review of Systems Review of Systems: Mild distress and fatigue no headache, no visual changes no speech or swallowing issues no chest pain, pressure or sensation of palpitations Dyspnea on exertion and orthopnea no abdominal pain, nausea or vomiting, diarrhea or constipation no dysuria, hematuria or frequency no focal joint pain some minor distal lower extremity swelling no back pain, CVA tenderness or radicular pain no bruising, bleeding or rashes no focal signs of weakness or numbness or altered sensation no complaints of anxiety or depression.. Physical Exam Physical Exam: The patient appeared well nourished and normally developed. He is morbidly obese with a BMI of 43 Vital signs as documented. Head exam is normocephalic atraumatic Neck is without JVD, thyromegaly, or carotid bruits. Lungs are minutes at the bases some minor rales Cardiac exam, irregular but rate controlled no systolic murmur Abdominal exam reveals normal bowel sounds, soft non tender, no masses Extremities are trace edematous and both pedal pulses are present Neurologic exam is alert and oriented, no focal loss of strength or sensation Skin is without bruises or rashes Psychologically is without concerns for anxiety or depression Results & Data Results & Data ([facility]) Vital Signs (Past 12 Hours) Vital Signs Temp Pulse Pulse Resp BP Pulse Ox 12/18/20 07:40 99.0 F 88 18 149/91 H 96 12/18/20 07:00 62 18 96 12/18/20 04:47 92 H 92 12/18/20 03:30 97.5 F L 86 13 134/81 95 12/18/20 02:35 85 12/17/20 23:20 93 H 16 95 12/17/20 23:01 99.1 F 92 H 24 143/98 H 94 12/17/20 22:20 94 H PG Care Time/CCT Total # of Minutes Spent Total Time Spent with Patient: Total time spent is greater than 50% in coordination of care (as documented) at patient's floor/unit and/or counseling patient: Coding Level of Care Code 60430 Subseq Hosp Care Lvl 3 Diagnoses Atrial fibrillation with rapid ventricular response I48.91 Pleural effusion, bilateral J90 Dyspnea R06.00 Edema R60.9 Hypertension I10 Obesity E66.9 Thoracic compression fracture S22.000A
[2020-12-18] MEDS: ASPIRIN 81 MG ECTAB PO SCH (09:15)
[2020-12-18] MEDS: POTASSIUM CHLORIDE CRTAB 20 MEQ TABCR PO SCH ×2 (09:15→20:06)
[2020-12-18] MEDS: METOPROLOL TARTRATE 50 MG TAB PO SCH ×2 (10:39→20:07)
--- NOTE | 2020-12-18 11:58 | Electrocardiogram Report ---
Test Reason : Blood Pressure : / mmHG Vent. Rate : 079 BPM Atrial Rate : 267 BPM P-R Int : 000 ms QRS Dur : 078 ms QT Int : 430 ms P-R-T Axes : 000 003 062 degrees QTc Int : 493 ms Atrial flutter with variable A-V block Nonspecific T wave abnormality Abnormal ECG When compared with ECG of 17-DEC-2020 12:31, No significant change was found Confirmed by Walt Huntley ([id number]) on 12/18/2020 11:57:52 AM Referred By: REFERRED SELF Confirmed By:Walt Huntley
[2020-12-18] MEDS: HEPARIN SODIUM/DEXTROSE 25,000 UNITS/500 ML BAG IV SCH ×2 (12:30→20:35)
--- NOTE | 2020-12-18 13:34 | XCELERA ---
[id number]
[2020-12-18 15:36] LABS: Partial Thromboplastin Ratio 1.2; Partial Thromboplastin Time 31.4 Seconds (21.0-31.0)
[2020-12-18] MEDS ORDERED: HEPARIN IV BOLUS 4,000 UNITS in SYRINGE 0 ML IV ONE (16:02)
[2020-12-18] MEDS ORDERED: lisinopril 5 MG TAB PO ONE (18:23)
[2020-12-18] MEDS: APIXABAN 5 MG TABLET PO SCH (20:30)
[2020-12-19] MEDS: ALBUTEROL 0.5% NEB SOLN 2.5 MG/0.5 ML VIAL NEB SCH ×2 (00:24→07:05)
[2020-12-19 05:41] LABS: Basophils # (auto) 0.03 K/uL (0-0.2); Basophils % (auto) 0.4 %; Eosinophils # (auto) 0.18 K/uL (0-0.5); Eosinophils % (auto) 2.1 %; Hematocrit (blood only) 39.1 % (42-52); Hemoglobin 13.4 g/dL (14.0-18.0); Lymphocytes # (auto) 2.12 K/uL (1.2-3.4); Lymphocytes % (auto) 25.3 %; Mean Corpuscular Hemoglobin 29.6 pg (25-34); Mean Corpuscular Hgb Conc 34.3 g/dL (32-36); Mean Corpuscular Volume 86.5 fL (80-100); Mean Platelet Volume 10.2 fL (7.4-10.4); Monocytes # (auto) 0.61 K/uL (0.11-0.59); Monocytes % (auto) 7.3 %; Neutrophils # (auto) 5.45 K/uL (1.4-6.5); Neutrophils % (auto) 64.9 %; Platelet Count 184 K/uL (130-400); RDW Coefficient of Variation 13.6 % (11.5-14.5); RDW Standard Deviation 42.7 fL (36.4-46.3); Red Blood Count 4.52 M/uL (4.7-6.1); White Blood Count 8.39 K/uL (4.8-10.8)
[2020-12-19 06:13] LABS: BUN Creatinine Ratio 18.3 (10-20); Calcium 8.9 mg/dl (8.5-10.1); Creatinine Clr Calc Pharmacy 107.6 ml/min; Est GFR (African American) 90.9 ml/min; Est GFR (Non-African American) 78.4 ml/min; Magnesium 1.9 mg/dl (1.8-2.4); Potassium 3.3 mmol/L (3.5-5.1)
[2020-12-19] MEDS: APIXABAN 5 MG TABLET PO SCH (07:33)
[2020-12-19] MEDS: FUROSEMIDE 40 MG in SYRINGE 0 ML IV SCH (07:33)
[2020-12-19] MEDS: POTASSIUM CHLORIDE CRTAB 20 MEQ TABCR PO SCH (07:35)
[2020-12-19] MEDS: ASPIRIN 81 MG ECTAB PO SCH (07:35)
[2020-12-19] MEDS: METOPROLOL TARTRATE 50 MG TAB PO SCH (07:36)
[2020-12-19] MEDS ORDERED: MAGNESIUM SULFATE / D5W 1 GM/100 ML BAG IV ONE (07:45)
[2020-12-19] MEDS ORDERED: POTASSIUM CHLORIDE CRTAB 20 MEQ TABCR PO STA (07:45)
[2020-12-19] MEDS ORDERED: lisinopril 5 MG TAB PO SCH (09:00)
[2020-12-19] MEDS ORDERED: BUMETANIDE 1 MG TAB PO SCH (09:00)
--- NOTE | 2020-12-19 09:36 | Electrocardiogram Report ---
Test Reason : Blood Pressure : / mmHG Vent. Rate : 089 BPM Atrial Rate : 258 BPM P-R Int : 000 ms QRS Dur : 076 ms QT Int : 408 ms P-R-T Axes : 064 046 -32 degrees QTc Int : 496 ms Atrial flutter with variable A-V block with premature ventricular or aberrantly conducted complexes Septal infarct , age undetermined T wave abnormality, consider inferolateral ischemia Abnormal ECG When compared with ECG of 18-DEC-2020 05:45, Septal infarct is now Present T wave inversion now evident in Inferior leads Inverted T waves have replaced nonspecific T wave abnormality in Anterolateral leads Confirmed by Jose Marsh ([id number]) on 12/19/2020 9:36:04 AM Referred By: REFERRED SELF Confirmed By:Jose Marsh
--- NOTE | 2020-12-19 14:26 | Discharge Summary ---
Date of Service December 19, 2020 Admission HPI Per Admitting Provider 60 YOM that is not from the area. He is normally a resident of [place] and is up here visiting his brother. The patient does not take any medications at home, and does not carry any other diagnosis except Hypertension and obesity per the patient. Patient had COVID 19 around 4-5 months ago, he reports that since then he has remained short of breath but over the past 2-3 weeks this has gotten significantly worse. He is only able to walk <0.25 miles before having to stop and catch his breath, he can go up 15 steps and has to stop. He has developed orthopnea over the past week to where he can't lie flat, this has also been associated with increase in lower extremity swelling that has gone up to his knees. He also complains of swelling in his abdomen feeling bloated, with decrease in appetite and early satiety, but denies his pants feeling tighter. In the EMD, it was noted that the patient was in atrial fibrillation with RVR with HR 120-130s, again he has no knowledge of ever being in this rhythm before and has not noted any palpitations or racing heart rate. He was rate controlled with Diltiazem 10mg bolus x2. He had a CTA of the chest performed which did reveal NO pulmonary embolisms but a right sided pleural effusion and hypersteatosis. Patient is short of breath with lying flat and with conversation, but he is not hypoxic. I will transition the patient to metoprolol IV x1 and PRN for HR >110 and start him on Metoprolol tartrate 25 mg PO q6 hours, 40 mg IV Lasix now and then 20mg IV Lasix q6 hours, telemetry monitoring and ECHO. Patient will be admitted to PCU. Patient will be visiting in the area for a month's time. Patient has not been vaccinated for COVID 19 but had the virus. COVID on admission is NEGATIVE Principal Diagnosis Atrial fibrillation converted atrial flutter Systolic heart failure EF 40% Discharge Exam The patient appeared well Vital signs as documented. Lungs are decreased at the bases appear unlabored Cardiac exam, Rhythm is regular. However is in rate controlled atrial flutter on the monitor. No murmurs, rubs or gallops. Abdominal exam reveals normal bowel sounds, soft non tender, no masses Extremities are nonedematous and both pedal pulses are normal. Neurologic exam is alert and oriented, no focal loss of strength or sensation Skin is without bruises or rashes Psychologically is without concerns for anxiety or depression. Discharge Data Allergies Allergy/AdvReac Type Severity Reaction Status Date / Time No Known Allergies Allergy Unverified 12/17/20 15:25 Consultations 12/17/20 14:34 ED Decision to Admit Stat Ordered Studies 12/17/20 13:07 CT angio chest PE protocol Stat Hospital Course (1) Atrial fibrillation with rapid ventricular response: New onset of Afib unknown time of onset- rate control strategy at this time, now aflutter - CHADS VASC- 2, HASBLED- 1 - Patient has never smoked and he does not use ETOH (last drink over a year ago) - BNP 2514 - ECHO shows EF 40% mild global hypokinesis of LV metoprolol tartrate 50 mg bid, lisinopril 5 mg daily - Started on Heparin drip in the EMD, will transition to Eliquis po prior to discharge Continues on an aspirin a day - TSH 1.4 - ? undiagnosed obesity hypoventilation syndrome- HCO3 27 patient will follow up in [place] have a sleep study (2) Pleural effusion, bilateral: Likely related to afib, and evidence of heart failure on exam secondary to acute on chronic systolic heart failure. - ECHO - Diurese-patient able lay flat the evening of the to the will be discharged on 0.5 mg of Bumex therapy daily will have outpatient laboratories checked in 1 week to evaluate potassium and renal function - Ct 12/17/20 IMPRESSION: 1. Cardiomegaly with pulmonary edema, small left and moderate right pleural effusions. 2. Dependent right greater than left bibasilar opacities are suggestive of atelectasis. 3. No pulmonary emboli. 4. Hepatic steatosis. 5. Numerous midthoracic compression deformities are technically age- indeterminate however are favored to be chronic. (3) Dyspnea: Multifactorial to include obesity, ? new onset systolic heart failure, terrance b/flutter, previous COVID -Hopeful to improve with outpatient diuresis and will eventually get a sleep study (4) Edema: Resolving with diuresis no murmurs on exam likely secondary to acute on chronic systolic heart failure (5) Hypertension: Metoprlol tartrate 50 mg twice daily plus lisinopril 5 mg a day - (6) Obesity: As above - Multiple risk factors for morbidity - HGA1C in morning with lipid profile - random cortisol - fat pad on back of neck (7) Thoracic compression fracture: discussed to be chronic on imaging patient has no acute pain at this time Total Time Total Time Spent Total Time Spent (In Minutes): It required greater than 30 minutes to prepare this patient for discharge Discharge Plan Discharge Items Patient Disposition: Home - Self-Care Reason For Visit: AFIB, LEG SWELLING, DYSPNEA Discharge Diagnosis: atrial fibrillation/atrial flutter fluid in lungs, removed with iv medication Activity: Per Instructions section Activity Comment: gradually increase activity. Non-emergency contact: Primary Care Provider and Car Jockey Call non-emergency contact if: you have any medication questions and your symptoms worsen Follow-up/Referrals: PCP,NO [Primary Care Provider] - Diet: Low Sodium (2gm) Ambulatory Orders: Basic Metabolic Panel (Routine) Timeframe: 8 Days Location: Determined by Patient Ordered By: Johnson Porras Magnesium (Routine) Timeframe: 8 Days Location: Determined by Patient Ordered By: Johnson Porras Addtl Attending Provider Instructions: Atrial flutter is a type of abnormal heart rhythm, or arrhythmia. It occurs when a short circuit in the heart causes the upper chambers (atria) to pump very rapidly. Atrial flutter is important not only because of its symptoms but because it can cause a stroke. You have been put on medication to prevent a stroke from occurring. These medications are typically referred to as blood thinners. Call 911 and go to the Emergency Room if: * You have tightness or pain in your chest that does not go away with rest or Nitroglycerin * You are very short of breath even with rest Call your doctor if any of the following symptoms or problems start or get worse: * Shortness of breath or difficulty breathing * Wake up at night short of breath * Chest pain * Cough * Swelling of your hands, fee, or legs * More fatigued or tired with your normal activity * Palpitations - sudden fast heart beats WEIGHT * Weigh yourself every morning after using the bathroom. * Use the same scale. * Wear the same amount of clothing. * Write your weight down on your chart. * Call your doctor if you gain more than 2-3 pounds in 1-2 days. MEDICATIONS * Use this discharge instruction sheet for instructions. * Take your medications at the time your doctor ordered. * Do not skip a dose of your medicines. * If you miss a dose of medicine, take as soon as possible, but DO NOT DOUBLE A DOSE. * Read your medicine information when you get home. * Know all of the side effects of your medicine. * Call your doctor's office if you have any side effects. * Be sure all of your doctors know what medicine and herbs you take (including cold, flu, and herbal medicine). * Pain Medicine: If you do not get relief from your pain, please call your doctor for help. Take the following with you to your follow-up doctor appointments: * Weight Chart * Medication List * List of questions Do not drink excessive alcohol, beer or wine. Medication Instructions: Your condition is typically treated with an anticoagulant. Anticoagulants will thin your blood to help prevent new clots. * You should take her medication exactly as directed. * Never skip a dose. * Never take a double dose. If you miss a dose, take it as soon as you remember. Call your Primary Care doctor if you experience any of the following: * Swelling or Pain in your leg * Sudden, continuous pain deep in a muscle * Pain that worsens when you are active or when you stand still for a long time * Chest Pain * Sudden Shortness of Breath * Rapid or pounding heart beat * Fainting * Dizziness * Cough with blood or bloody sputum * Sweating more than normal * Bruises * Heavy or uncontrolled bleeding * Blood in your urine, stool or vomit * Black or tarry stools Caring for Your Self at Home: * Avoid sitting, standing or lying down for long periods without moving your legs and feet * When traveling by car, stop to get out and move around at least once every 3 hours * On long airplane, train or bus rides, get up and move around when possible * If you can't get up, wiggle your toes and tighten your calves to keep your blood moving Follow Up: It is important for you to keep your follow up appointments with your medical provider. Pending Studies at Discharge: No Stand-Alone Forms: My [employer], Smoking Cessation Medications and DC Order Prescriptions: New metoprolol tartrate 50 mg Tablet 50 mg PO BID Qty: 60 RF: 5 lisinopril [Zestril] 5 mg Tablet 5 mg PO QAM Qty: 30 RF: 5 Eliquis 5 mg Tablet 5 mg PO BID Qty: 60 RF: 5 bumetanide 0.5 mg tablet 0.5 mg PO DAILY Qty: 30 RF: 5 Continued aspirin 81 mg Tablet,Delayed Release (Dr/Ec) 81 mg PO DAILY RF: 0 Discharge Orders: Discharge Order (Routine); Ordered 12/19/20 Ordered By: Johnson Porras Admission Data Admit Date/Time: 12/17/20 15:02 Attending Provider: Johnson Porras Admit Provider: Kenton Uriarte Primary Care Provider: PCP,NO Other Providers: Shivam Greene Other Interventions: Discharge Summary Assessment (RN) Last Done: 12/19/20 10:43 Coding Level of Care Code D/C DAY MANAGEMENT >30 MINS Diagnoses Atrial fibrillation with rapid ventricular response I48.91 Pleural effusion, bilateral J90 Dyspnea R06.00 Edema R60.9 Hypertension I10 Obesity E66.9 Thoracic compression fracture S22.000A
== END 2020-12-19 12:39 | disposition home or self-care (01) | DRG 309 ==
LOC: ED 12:18 → 2S 15:02